=== PATIENT | male | born 1960 | race Caucasian/White ===

== ENCOUNTER 2017-06-06 10:20 | Inpatient (IN) | payer MEDICARE, MEDICAID ==
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
[2017-06-06] MEDS: metFORMIN 500 MG Tab PO SCH (17:44)
[2017-06-06] MEDS: Docusate Sodium 100 MG Cap PO SCH (19:40)
[2017-06-06] MEDS: OLANZapine 10 MG Tab PO SCH (19:40)
[2017-06-06] MEDS: Phenytoin 100 MG Cap.ER PO SCH (19:40)
[2017-06-06] MEDS: Simvastatin 20 MG Tab PO SCH (19:40)
[2017-06-06] MEDS: OLANZapine 5 MG Tab PO SCH (19:40)
[2017-06-06] MEDS: Sennosides 8.6 MG Tab PO SCH (19:40)
[2017-06-06] MEDS ORDERED: PHENYTOIN SODIUM PO SCH ×2 (20:00)
[2017-06-07] MEDS: Omeprazole 20 MG Cap.CR PO SCH ×2 (05:42→06:00)
[2017-06-07] MEDS: Vitamin B Complex Tab.ER PO SCH (07:37)
[2017-06-07] MEDS: Multivitamins with Iron/Calcium/Folic Acid/Minerals Tab PO SCH (07:37)
[2017-06-07] MEDS: metFORMIN 500 MG Tab PO SCH ×2 (07:37→17:59)
[2017-06-07] MEDS: Aspirin 81 MG Tab.EC PO SCH (07:37)
[2017-06-07] MEDS: Docusate Sodium 100 MG Cap PO SCH ×2 (07:38→20:04)
[2017-06-07] MEDS: CLOZAPINE PO SCH ×2 (07:38→12:46)
[2017-06-07] MEDS: Folic Acid 1 MG Tab PO SCH (07:38)
--- NOTE | 2017-06-07 10:05 | PCM.PN ---
- General Info Date of Service: 06/07/17 Admission Dx/Problem (Free Text): History: I received word that he was ready for discharge so I discussed this with his molding room supervisor in [place], Sidra Metzger, and she agreed that discharge was probably premature, noted also that he had significant cognitive decline since his status epilepticus, although it seemed to improve about the time he was discharged from [place]. Also had been noted after he moved to [facility] in [place] that he had developed polydipsia, and nurses have noted that here to, they would refill his water pitcher and he would check it down immediately, although he denied that he was thirsty. During his hospitalization in [place] he was noted to have very low urine osmolality, then went back to normal as his serum sodium joshua. 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 The living situation in [facility] does involve a nurse at the facility and med aids at night, so we might be able to enforce a fluid restriction there later with good supervision. Exam: -He still doesnt have a very good memory. -Seems comfortable in bed Impression: -Schizophrenia with new onset psychogenic polydipsia following transfer to a different living situation -Severe hyponatremia secondary to the polydipsia -Status epilepticus secondary to the hyponatremia, now resolved -We will need to make sure that he complies with a fluid restriction and tolerates it before considering going off his Dilantin again Plan: -Fluid restriction 1500 mL, if that is difficult we can increase it later, we only need to make sure he doesnt drink massive amounts -Check BMP to assess his Na+ on 06/10 and again later in the week -He might need a more formal cognitive assessment before moving him back to [facility] - Patient Data Vitals - Most Recent: Last Vital Signs Temp 36.4 C 06/07/17 05:40 Pulse 72 06/07/17 05:40 Resp 16 06/07/17 05:40 BP 112/73 06/07/17 05:40 Pulse Ox 95 06/07/17 05:40 Weight - Most Recent: 74.162 kg I&O - Last 24 Hours: Intake & Output 06/06/17 06/07/17 06/07/17 22:59 06:59 14:59 Intake Total 680 700 Balance 680 700 Lab Results Last 24 Hours: Laboratory Results - last 24 hr 06/06/17 06/07/17 Range/Units 17:07 05:39 POC Glucose 92 93 (74-106) mg/dL Asim Results Last 24 Hours: Microbiology 06/06/17 10:51 MRSA Surveillance Culture - Final Nares, Unspecified NO MRSA ISOLATED Med Orders - Current: Current Medications Aspirin (Halfprin) 81 mg PO BRK REPLACED BY [facility] Last Admin: 06/07/17 07:37 Dose: 81 mg Docusate Sodium (Colace) 100 mg PO BID REPLACED BY [facility] Last Admin: 06/07/17 07:38 Dose: 100 mg Folic Acid (Folic Acid) 1 mg PO DAILY REPLACED BY [facility] Last Admin: 06/07/17 07:38 Dose: 1 mg Metformin HCl (Glucophage) 500 mg PO BIDMEALS REPLACED BY [facility] Last Admin: 06/07/17 07:37 Dose: 500 mg Multivitamins/Minerals (Thera M Plus) 1 tab PO DAILY REPLACED BY [facility] Last Admin: 06/07/17 07:37 Dose: 1 tab Clozapine (Own (Supply)) 0 mg PO BEDTIME REPLACED BY [facility] Last Admin: 06/06/17 20:07 Dose: 200 mg Clozapine (Own (Supply)) 0 mg PO DAILY REPLACED BY [facility] Last Admin: 06/07/17 07:38 Dose: 50 mg Clozapine (Own (Supply)) 0 mg PO DAILY@12 TAYA Olanzapine (Zyprexa) 20 mg PO BEDTIME REPLACED BY [facility] Last Admin: 06/06/17 19:40 Dose: 20 mg Olanzapine (Zyprexa) 5 mg PO BEDTIME REPLACED BY [facility] Last Admin: 06/06/17 19:40 Dose: 5 mg Omeprazole (Omeprazole) 20 mg PO ACBREAKFAST REPLACED BY [facility] Last Admin: 06/07/17 06:00 Dose: Not Given Phenytoin Sodium (Phenytoin) 300 mg PO BEDTIME REPLACED BY [facility] PRN Reason: Taper Stop: 03/17/20 19:59 Last Admin: 06/06/17 19:40 Dose: 300 mg Senna (Senna) 8.6 mg PO BEDTIME REPLACED BY [facility] Last Admin: 06/06/17 19:40 Dose: 8.6 mg Simvastatin (Zocor) 20 mg PO BEDTIME REPLACED BY [facility] Last Admin: 06/06/17 19:40 Dose: 20 mg Vitamin B Complex (Balanced B-50) 1 each PO DAILY REPLACED BY [facility] Last Admin: 06/07/17 07:37 Dose: 1 each - Problem List Review Problem List Initiated/Reviewed/Updated: Yes - My Orders Last 24 Hours: My Active Orders 06/06/17 09:32 OT Evaluation and Treatment [CONS] Routine PT Evaluation and Treatment [CONS] Routine 06/06/17 10:20 Patient Status [ADT] Routine 06/06/17 11:26 Blood Glucose Check, Bedside [RC] 06/06/17 12:39 Patient Status [ADT] Routine Oxygen Therapy [RC] .PRN VTE/DVT Education [RC] .PRN Vital Signs [RC] Resuscitation Status Routine 06/06/17 18:00 metFORMIN [Glucophage] 500 mg PO BIDMEALS 06/06/17 20:00 Docusate Sodium [Colace] 100 mg PO BID OLANZapine [ZyPREXA] 20 mg PO BEDTIME OLANZapine [ZyPREXA] 5 mg PO BEDTIME Phenytoin 300 mg PO BEDTIME Sennosides [Senna] 8.6 mg PO BEDTIME Simvastatin [Zocor] 20 mg PO BEDTIME cloZAPine 0 mg PO BEDTIME 06/06/17 Lunch ADA Diabetic [[place] Diabetic Association Diet] [DIET] 06/07/17 07:00 Omeprazole 20 mg PO ACBREAKFAST 06/07/17 08:00 Aspirin [Halfprin] 81 mg PO BRK Folic Acid 1 mg PO DAILY Multivitamins w-Iron/Ca/FA/Min [Thera M Plus] 1 tab PO DAILY Vitamin B Complex [Balanced B-50] 1 each PO DAILY cloZAPine [Clozapine] 0 mg PO DAILY 06/07/17 12:00 cloZAPine 0 mg PO DAILY@12 06/07/17 Lunch Fluid Restriction [DIET] 06/10/17 06:00 BASIC METABOLIC PANEL,BMP [CHEM] Routine
[2017-06-07] MEDS: OLANZapine 5 MG Tab PO SCH (20:04)
[2017-06-07] MEDS: Sennosides 8.6 MG Tab PO SCH (20:04)
[2017-06-07] MEDS: Simvastatin 20 MG Tab PO SCH (20:04)
[2017-06-07] MEDS: OLANZapine 10 MG Tab PO SCH (20:04)
[2017-06-07] MEDS: Phenytoin 100 MG Cap.ER PO SCH (20:04)
[2017-06-08] MEDS: Omeprazole 20 MG Cap.CR PO SCH (06:45)
[2017-06-08] MEDS: Aspirin 81 MG Tab.EC PO SCH (07:46)
[2017-06-08] MEDS: metFORMIN 500 MG Tab PO SCH ×2 (07:46→17:55)
[2017-06-08] MEDS: Folic Acid 1 MG Tab PO SCH (07:46)
[2017-06-08] MEDS: Docusate Sodium 100 MG Cap PO SCH ×2 (07:46→21:28)
[2017-06-08] MEDS: CLOZAPINE PO SCH ×2 (07:46→12:19)
[2017-06-08] MEDS: Vitamin B Complex Tab.ER PO SCH (07:46)
[2017-06-08] MEDS: Multivitamins with Iron/Calcium/Folic Acid/Minerals Tab PO SCH (07:46)
[2017-06-08] MEDS: Phenytoin 100 MG Cap.ER PO SCH (21:26)
[2017-06-08] MEDS: Simvastatin 20 MG Tab PO SCH (21:26)
[2017-06-08] MEDS: OLANZapine 5 MG Tab PO SCH (21:27)
[2017-06-08] MEDS: OLANZapine 10 MG Tab PO SCH (21:27)
[2017-06-08] MEDS: Sennosides 8.6 MG Tab PO SCH (21:27)
[2017-06-09] MEDS ORDERED: Acetaminophen 325 MG Tab PO PRN (00:05)
[2017-06-09] MEDS: Omeprazole 20 MG Cap.CR PO SCH (06:01)
[2017-06-09] MEDS: Docusate Sodium 100 MG Cap PO SCH ×2 (07:36→19:58)
[2017-06-09] MEDS: Vitamin B Complex Tab.ER PO SCH (07:36)
[2017-06-09] MEDS: CLOZAPINE PO SCH ×2 (07:36→12:00)
[2017-06-09] MEDS: Folic Acid 1 MG Tab PO SCH (07:36)
[2017-06-09] MEDS: metFORMIN 500 MG Tab PO SCH ×2 (07:36→17:40)
[2017-06-09] MEDS: Aspirin 81 MG Tab.EC PO SCH (07:36)
[2017-06-09] MEDS: Multivitamins with Iron/Calcium/Folic Acid/Minerals Tab PO SCH (07:37)
[2017-06-09] MEDS: OLANZapine 5 MG Tab PO SCH (19:58)
[2017-06-09] MEDS: Sennosides 8.6 MG Tab PO SCH (19:58)
[2017-06-09] MEDS: Phenytoin 100 MG Cap.ER PO SCH (19:58)
[2017-06-09] MEDS: OLANZapine 10 MG Tab PO SCH (19:58)
[2017-06-09] MEDS: Simvastatin 20 MG Tab PO SCH (19:59)
[2017-06-10] MEDS: Omeprazole 20 MG Cap.CR PO SCH (06:33)
[2017-06-10 07:25] LABS: CHLORIDE,CL 108 mmol/L (98-107); SODIUM,NA 144 mmol/L (136-145)
[2017-06-10] MEDS: CLOZAPINE PO SCH ×2 (08:26→12:07)
[2017-06-10] MEDS: metFORMIN 500 MG Tab PO SCH ×2 (08:26→17:55)
[2017-06-10] MEDS: Vitamin B Complex Tab.ER PO SCH (08:26)
[2017-06-10] MEDS: Folic Acid 1 MG Tab PO SCH (08:26)
[2017-06-10] MEDS: Docusate Sodium 100 MG Cap PO SCH ×2 (08:26→20:11)
[2017-06-10] MEDS: Aspirin 81 MG Tab.EC PO SCH (08:26)
[2017-06-10] MEDS: Multivitamins with Iron/Calcium/Folic Acid/Minerals Tab PO SCH (08:26)
[2017-06-10] MEDS: Simvastatin 20 MG Tab PO SCH (20:11)
[2017-06-10] MEDS: OLANZapine 10 MG Tab PO SCH (20:11)
[2017-06-10] MEDS: Phenytoin 100 MG Cap.ER PO SCH (20:11)
[2017-06-10] MEDS: OLANZapine 5 MG Tab PO SCH (20:11)
[2017-06-10] MEDS: Sennosides 8.6 MG Tab PO SCH (20:12)
[2017-06-11] MEDS: Vitamin B Complex Tab.ER PO SCH (13:16)
[2017-06-11] MEDS: CLOZAPINE PO SCH ×2 (13:16→13:17)
[2017-06-11] MEDS: Omeprazole 20 MG Cap.CR PO SCH (13:16)
[2017-06-11] MEDS: Docusate Sodium 100 MG Cap PO SCH ×2 (13:17→20:02)
[2017-06-11] MEDS: Folic Acid 1 MG Tab PO SCH (13:17)
[2017-06-11] MEDS: Aspirin 81 MG Tab.EC PO SCH (13:17)
[2017-06-11] MEDS: metFORMIN 500 MG Tab PO SCH ×2 (13:17→17:08)
[2017-06-11] MEDS: Multivitamins with Iron/Calcium/Folic Acid/Minerals Tab PO SCH (13:17)
[2017-06-11] MEDS: Phenytoin 100 MG Cap.ER PO SCH (20:02)
[2017-06-11] MEDS: Sennosides 8.6 MG Tab PO SCH (20:03)
[2017-06-11] MEDS: Simvastatin 20 MG Tab PO SCH (20:03)
[2017-06-11] MEDS: OLANZapine 10 MG Tab PO SCH (20:03)
[2017-06-11] MEDS: OLANZapine 5 MG Tab PO SCH (20:04)
[2017-06-12] MEDS: Omeprazole 20 MG Cap.CR PO SCH (06:28)
[2017-06-12] MEDS: metFORMIN 500 MG Tab PO SCH (08:00)
[2017-06-12] MEDS: CLOZAPINE PO SCH ×2 (08:00→12:31)
[2017-06-12] MEDS: Multivitamins with Iron/Calcium/Folic Acid/Minerals Tab PO SCH (08:00)
[2017-06-12] MEDS: Folic Acid 1 MG Tab PO SCH (08:00)
[2017-06-12] MEDS: Docusate Sodium 100 MG Cap PO SCH ×2 (08:00→20:20)
[2017-06-12] MEDS: Aspirin 81 MG Tab.EC PO SCH (08:00)
[2017-06-12] MEDS: Vitamin B Complex Tab.ER PO SCH (08:00)
[2017-06-12] MEDS: METFORMIN 500 MG PO SCH (17:44)
[2017-06-12] MEDS: PHENYTOIN 100 MG PO SCH (20:21)
[2017-06-12] MEDS: OLANZAPINE 20 MG PO SCH (20:21)
[2017-06-12] MEDS: SIMVASTATIN 20 MG PO SCH (20:24)
[2017-06-12] MEDS: OLANZAPINE 5 MG PO SCH (20:24)
[2017-06-12] MEDS: Sennosides 8.6 MG Tab PO SCH (20:27)
[2017-06-13] MEDS: OMEPRAZOLE 20 MG PO SCH (06:36)
[2017-06-13] MEDS: METFORMIN 500 MG PO SCH ×2 (07:29→17:54)
[2017-06-13] MEDS: FOLIC ACID 800 MCG PO SCH (07:29)
[2017-06-13] MEDS: Docusate Sodium 100 MG Cap PO SCH ×2 (07:30→20:07)
[2017-06-13] MEDS: Multivitamins with Iron/Calcium/Folic Acid/Minerals Tab PO SCH (07:30)
[2017-06-13] MEDS: Aspirin 81 MG Tab.EC PO SCH (07:30)
[2017-06-13] MEDS: Vitamin B Complex Tab.ER PO SCH (07:30)
[2017-06-13] MEDS: CLOZAPINE PO SCH ×2 (07:31→11:48)
[2017-06-13] MEDS: Polyethylene Glycol 3350 Powder 17 GM Packet PO SCH (12:06)
[2017-06-13] MEDS: Sennosides 8.6 MG Tab PO SCH (20:07)
[2017-06-13] MEDS: OLANZAPINE 5 MG PO SCH (20:07)
[2017-06-13] MEDS: SIMVASTATIN 20 MG PO SCH (20:08)
[2017-06-13] MEDS: OLANZAPINE 20 MG PO SCH (20:08)
[2017-06-13] MEDS: PHENYTOIN 100 MG PO SCH (20:08)
[2017-06-14] MEDS: OMEPRAZOLE 20 MG PO SCH (06:34)
[2017-06-14] MEDS: Vitamin B Complex Tab.ER PO SCH (07:37)
[2017-06-14] MEDS: CLOZAPINE PO SCH ×2 (07:38→12:02)
[2017-06-14] MEDS: Docusate Sodium 100 MG Cap PO SCH ×2 (07:39→20:54)
[2017-06-14] MEDS: FOLIC ACID 800 MCG PO SCH (07:39)
[2017-06-14] MEDS: Aspirin 81 MG Tab.EC PO SCH (07:39)
[2017-06-14] MEDS: Polyethylene Glycol 3350 Powder 17 GM Packet PO SCH (07:40)
[2017-06-14] MEDS: Multivitamins with Iron/Calcium/Folic Acid/Minerals Tab PO SCH (07:40)
[2017-06-14] MEDS: METFORMIN 500 MG PO SCH ×2 (07:40→18:11)
[2017-06-14] MEDS: OLANZAPINE 20 MG PO SCH (20:54)
[2017-06-14] MEDS: PHENYTOIN 100 MG PO SCH (20:55)
[2017-06-14] MEDS: OLANZAPINE 5 MG PO SCH (20:55)
[2017-06-14] MEDS: Sennosides 8.6 MG Tab PO SCH (20:56)
[2017-06-14] MEDS: SIMVASTATIN 20 MG PO SCH (20:56)
[2017-06-15] MEDS: OMEPRAZOLE 20 MG PO SCH (06:19)
[2017-06-15] MEDS: Polyethylene Glycol 3350 Powder 17 GM Packet PO SCH (08:22)
[2017-06-15] MEDS: Vitamin B Complex Tab.ER PO SCH (08:23)
[2017-06-15] MEDS: Docusate Sodium 100 MG Cap PO SCH ×2 (08:23→20:24)
[2017-06-15] MEDS: CLOZAPINE PO SCH ×2 (08:23→12:39)
[2017-06-15] MEDS: Aspirin 81 MG Tab.EC PO SCH (08:23)
[2017-06-15] MEDS: Multivitamins with Iron/Calcium/Folic Acid/Minerals Tab PO SCH (08:23)
[2017-06-15] MEDS: METFORMIN 500 MG PO SCH ×2 (08:23→17:03)
[2017-06-15] MEDS: FOLIC ACID 800 MCG PO SCH (08:23)
[2017-06-15] MEDS: Magnesium Hydroxide 400 MG/5 ML Susp 30 ML Cup PO PRN (15:04)
[2017-06-15] MEDS: Sennosides 8.6 MG Tab PO SCH (20:24)
[2017-06-15] MEDS: OLANZAPINE 20 MG PO SCH (20:24)
[2017-06-15] MEDS: PHENYTOIN 100 MG PO SCH (20:25)
[2017-06-15] MEDS: OLANZAPINE 5 MG PO SCH (20:25)
[2017-06-15] MEDS: SIMVASTATIN 20 MG PO SCH (20:26)
[2017-06-16] MEDS: OMEPRAZOLE 20 MG PO SCH (06:11)
[2017-06-16] MEDS: Magnesium Hydroxide 400 MG/5 ML Susp 30 ML Cup PO PRN (07:48)
[2017-06-16] MEDS: Vitamin B Complex Tab.ER PO SCH (07:48)
[2017-06-16] MEDS: Multivitamins with Iron/Calcium/Folic Acid/Minerals Tab PO SCH (07:48)
[2017-06-16] MEDS: Aspirin 81 MG Tab.EC PO SCH (07:48)
[2017-06-16] MEDS: Docusate Sodium 100 MG Cap PO SCH ×2 (07:48→20:03)
[2017-06-16] MEDS: Polyethylene Glycol 3350 Powder 17 GM Packet PO SCH (07:48)
[2017-06-16] MEDS: FOLIC ACID 800 MCG PO SCH (07:49)
[2017-06-16] MEDS: CLOZAPINE PO SCH ×2 (07:49→11:10)
[2017-06-16] MEDS: METFORMIN 500 MG PO SCH ×2 (07:49→17:04)
[2017-06-16] MEDS: PHENYTOIN 100 MG PO SCH (20:03)
[2017-06-16] MEDS: Sennosides 8.6 MG Tab PO SCH (20:03)
[2017-06-16] MEDS: OLANZAPINE 20 MG PO SCH (20:03)
[2017-06-16] MEDS: OLANZAPINE 5 MG PO SCH (20:03)
[2017-06-16] MEDS: SIMVASTATIN 20 MG PO SCH (20:04)
[2017-06-17] MEDS: OMEPRAZOLE 20 MG PO SCH (06:09)
[2017-06-17] MEDS: CLOZAPINE PO SCH ×2 (07:16→11:05)
[2017-06-17] MEDS: METFORMIN 500 MG PO SCH ×2 (07:16→17:01)
[2017-06-17] MEDS: FOLIC ACID 800 MCG PO SCH (07:17)
[2017-06-17] MEDS: Multivitamins with Iron/Calcium/Folic Acid/Minerals Tab PO SCH (07:17)
[2017-06-17] MEDS: Aspirin 81 MG Tab.EC PO SCH (07:17)
[2017-06-17] MEDS: Docusate Sodium 100 MG Cap PO SCH ×2 (07:17→19:51)
[2017-06-17] MEDS: Vitamin B Complex Tab.ER PO SCH (07:17)
[2017-06-17] MEDS: Polyethylene Glycol 3350 Powder 17 GM Packet PO SCH (07:18)
[2017-06-17] MEDS: SIMVASTATIN 20 MG PO SCH (19:51)
[2017-06-17] MEDS: Sennosides 8.6 MG Tab PO SCH (19:51)
[2017-06-17] MEDS: OLANZAPINE 20 MG PO SCH (19:52)
[2017-06-17] MEDS: OLANZAPINE 5 MG PO SCH (19:52)
[2017-06-17] MEDS: PHENYTOIN 100 MG PO SCH (19:52)
[2017-06-18] MEDS: OMEPRAZOLE 20 MG PO SCH (06:14)
[2017-06-18] MEDS: Multivitamins with Iron/Calcium/Folic Acid/Minerals Tab PO SCH (08:34)
[2017-06-18] MEDS: Vitamin B Complex Tab.ER PO SCH (08:35)
[2017-06-18] MEDS: Docusate Sodium 100 MG Cap PO SCH ×2 (08:35→20:57)
[2017-06-18] MEDS: Polyethylene Glycol 3350 Powder 17 GM Packet PO SCH (08:35)
[2017-06-18] MEDS: Aspirin 81 MG Tab.EC PO SCH (08:35)
[2017-06-18] MEDS: FOLIC ACID 800 MCG PO SCH (08:36)
[2017-06-18] MEDS: CLOZAPINE PO SCH ×2 (08:36→13:26)
[2017-06-18] MEDS: METFORMIN 500 MG PO SCH ×2 (08:36→18:43)
[2017-06-18] MEDS: Sennosides 8.6 MG Tab PO SCH (20:57)
[2017-06-18] MEDS: OLANZAPINE 20 MG PO SCH (20:58)
[2017-06-18] MEDS: OLANZAPINE 5 MG PO SCH (20:58)
[2017-06-18] MEDS: PHENYTOIN 100 MG PO SCH (21:00)
[2017-06-18] MEDS: SIMVASTATIN 20 MG PO SCH (21:00)
[2017-06-19] MEDS: OMEPRAZOLE 20 MG PO SCH (06:09)
[2017-06-19] MEDS: Multivitamins with Iron/Calcium/Folic Acid/Minerals Tab PO SCH (08:58)
[2017-06-19] MEDS: Aspirin 81 MG Tab.EC PO SCH (08:58)
[2017-06-19] MEDS: Docusate Sodium 100 MG Cap PO SCH ×2 (08:58→20:12)
[2017-06-19] MEDS: Vitamin B Complex Tab.ER PO SCH (08:58)
[2017-06-19] MEDS: METFORMIN 500 MG PO SCH ×2 (08:59→17:46)
[2017-06-19] MEDS: FOLIC ACID 800 MCG PO SCH (08:59)
[2017-06-19] MEDS: CLOZAPINE PO SCH ×2 (09:00→11:42)
[2017-06-19] MEDS: Polyethylene Glycol 3350 Powder 17 GM Packet PO SCH (09:01)
[2017-06-19] MEDS: OLANZAPINE 20 MG PO SCH (20:10)
[2017-06-19] MEDS: PHENYTOIN 100 MG PO SCH (20:10)
[2017-06-19] MEDS: SIMVASTATIN 20 MG PO SCH (20:11)
[2017-06-19] MEDS: OLANZAPINE 5 MG PO SCH (20:11)
[2017-06-19] MEDS: Sennosides 8.6 MG Tab PO SCH (20:12)
[2017-06-20] MEDS: OMEPRAZOLE 20 MG PO SCH (06:41)
[2017-06-20] MEDS: Multivitamins with Iron/Calcium/Folic Acid/Minerals Tab PO SCH (07:36)
[2017-06-20] MEDS: Vitamin B Complex Tab.ER PO SCH (07:36)
[2017-06-20] MEDS: Docusate Sodium 100 MG Cap PO SCH ×2 (07:37→20:03)
[2017-06-20] MEDS: CLOZAPINE PO SCH ×2 (07:37→11:17)
[2017-06-20] MEDS: Aspirin 81 MG Tab.EC PO SCH (07:37)
[2017-06-20] MEDS: FOLIC ACID 800 MCG PO SCH (07:38)
[2017-06-20] MEDS: METFORMIN 500 MG PO SCH ×2 (07:38→17:43)
[2017-06-20] MEDS: Polyethylene Glycol 3350 Powder 17 GM Packet PO SCH (07:39)
[2017-06-20 07:40] LABS: CHLORIDE,CL 106 mmol/L (98-107); SODIUM,NA 143 mmol/L (136-145)
[2017-06-20] MEDS: Sennosides 8.6 MG Tab PO SCH (20:03)
[2017-06-20] MEDS: PHENYTOIN 100 MG PO SCH (20:04)
[2017-06-20] MEDS: OLANZAPINE 20 MG PO SCH (20:04)
[2017-06-20] MEDS: SIMVASTATIN 20 MG PO SCH (20:05)
[2017-06-20] MEDS: OLANZAPINE 5 MG PO SCH (20:05)
[2017-06-21] MEDS: OMEPRAZOLE 20 MG PO SCH (06:26)
[2017-06-21] MEDS: Docusate Sodium 100 MG Cap PO SCH ×2 (07:34→20:42)
[2017-06-21] MEDS: Multivitamins with Iron/Calcium/Folic Acid/Minerals Tab PO SCH (07:34)
[2017-06-21] MEDS: Aspirin 81 MG Tab.EC PO SCH (07:34)
[2017-06-21] MEDS: Vitamin B Complex Tab.ER PO SCH (07:34)
[2017-06-21] MEDS: METFORMIN 500 MG PO SCH ×2 (07:35→17:32)
[2017-06-21] MEDS: CLOZAPINE PO SCH ×2 (07:36→11:53)
[2017-06-21] MEDS: FOLIC ACID 800 MCG PO SCH (07:36)
[2017-06-21] MEDS: Polyethylene Glycol 3350 Powder 17 GM Packet PO SCH (07:37)
--- NOTE | 2017-06-21 10:01 | PCM.PN ---
- General Info Date of Service: 06/19/17 Admission Dx/Problem (Free Text): History: Because he was put on a fluid restriction the rules did not allow him to go back to the same assisted living where he had been previously. He has done very well, and would appear not to need a formal fluid restriction. He is easily redirected when he asks for extra water and has not been found to be sneaking any. immigration case worker has been in touch with [facility] and they are considering taking him back, if we would discontinue the formal fluid restriction, and that seems reasonable. His Na+ yesterday was 143, K+ 4.0, GFR > 60. His Accu-Cheks have been normal. Exam, on 06/19/17: -Lucid and alert -Answered questions appropriately -Ambulating independently -Still some mildly bizarre thought content Impression: -Severe episode of hyponatremia and resulting status epilepticus, now resolved -Mild increase in cognitive disorders since this event, should be able to function in his apartment again -Would appear not to need a formal fluid restriction, just fairly close general contact at first -Since his Dilantin level was low on this dose and he does not seem to have symptoms from it, I am inclined to continue Dilantin for a few months, just so he has some on board Plan: -Discussed with Procedure Manager 06/20/17, they will try to finalize plans for T/F back to [facility]. -D/C the formal fluid restriction - Patient Data Vitals - Most Recent: Last Vital Signs Temp 36.5 C 06/21/17 05:25 Pulse 88 06/21/17 05:25 Resp 18 06/21/17 05:25 BP 108/65 06/21/17 05:25 Pulse Ox 96 06/21/17 05:25 Weight - Most Recent: 74.162 kg I&O - Last 24 Hours: Intake & Output 06/20/17 06/21/17 06/21/17 22:59 06:59 14:59 Intake Total 480 420 Balance 480 420 Lab Results Last 24 Hours: Laboratory Results - last 24 hr 06/20/17 06/21/17 Range/Units 16:52 06:24 POC Glucose 83 80 (74-106) mg/dL Med Orders - Current: Current Medications Acetaminophen (Tylenol) 650 mg PO Q4H PRN PRN Reason: Pain Last Admin: 06/09/17 00:27 Dose: 650 mg Aspirin (Halfprin) 81 mg PO DAILY [facility] Last Admin: 06/21/17 07:34 Dose: 81 mg Docusate Sodium (Colace) 100 mg PO BID [facility] Last Admin: 06/21/17 07:34 Dose: 100 mg Magnesium Hydroxide (Milk Of Magnesia) 30 ml PO DAILY PRN PRN Reason: Constipation Last Admin: 06/16/17 07:48 Dose: 30 ml Multivitamins/Minerals (Thera M Plus) 1 tab PO DAILY [facility] Last Admin: 06/21/17 07:34 Dose: 1 tab Clozapine (Own (Supply)) 0 mg PO BEDTIME [facility] Last Admin: 06/20/17 20:04 Dose: 200 mg Clozapine (Own (Supply)) 0 mg PO DAILY [facility] Last Admin: 06/21/17 07:36 Dose: 50 mg Clozapine (Own (Supply)) 0 mg PO DAILY@12 [facility] Last Admin: 06/20/17 11:17 Dose: 100 mg Folic Acid. 800mcg ( (Own Supply)) 0 mcg PO DAILY [facility] Last Admin: 06/21/17 07:36 Dose: 800 mcg Metformin. 500mg ( (Own Supply)) 0 mg PO BIDMEALS [facility] Last Admin: 06/21/17 07:35 Dose: 500 mg Olanzapine. 20mg ( (Own Supply)) 0 mg PO BEDTIME [facility] Last Admin: 06/20/17 20:04 Dose: 20 mg Olanzapine. 5mg (Own (Supply)) 0 mg PO BEDTIME [facility] Last Admin: 06/20/17 20:05 Dose: 5 mg Omeprazole. 20mg ( (Own Supply)) 0 mg PO ACBREAKFAST [facility] Last Admin: 06/21/17 06:26 Dose: 20 mg Phenytoin. 100mg ( (Own Supply)) 200 mg PO BEDTIME [facility] PRN Reason: Taper Stop: 06/29/17 19:59 Last Admin: 06/20/17 20:04 Dose: 200 mg Simvastatin. 20mg ( (Own Supply)) 0 mg PO BEDTIME [facility] Last Admin: 06/20/17 20:05 Dose: 20 mg Polyethylene Glycol (Miralax) 17 gm PO DAILY [facility] Last Admin: 06/21/17 07:37 Dose: 17 gm Senna (Senna) 8.6 mg PO BEDTIME [facility] Last Admin: 06/20/17 20:03 Dose: 8.6 mg Vitamin B Complex (Balanced B-50) 1 each PO DAILY TAYA Last Admin: 06/21/17 07:34 Dose: 1 each Discontinued Medications Aspirin (Halfprin) 81 mg PO BRK TAYA Last Admin: 06/12/17 08:00 Dose: 81 mg Folic Acid (Folic Acid) 1 mg PO DAILY TAYA Last Admin: 06/12/17 08:00 Dose: 1 mg Metformin HCl (Glucophage) 500 mg PO BIDMEALS TAYA Last Admin: 06/12/17 08:00 Dose: 500 mg Olanzapine (Zyprexa) 20 mg PO BEDTIME TAYA Last Admin: 06/11/17 20:03 Dose: 20 mg Olanzapine (Zyprexa) 5 mg PO BEDTIME TAYA Last Admin: 06/11/17 20:04 Dose: 5 mg Omeprazole (Omeprazole) 20 mg PO ACBREAKFAST TAYA Last Admin: 06/12/17 06:28 Dose: 20 mg Phenytoin Sodium (Phenytoin) 300 mg PO BEDTIME TAYA PRN Reason: Taper Stop: 03/17/20 19:59 Last Admin: 06/11/17 20:02 Dose: 300 mg Simvastatin (Zocor) 20 mg PO BEDTIME TAYA Last Admin: 06/11/17 20:03 Dose: 20 mg - Problem List Review Problem List Initiated/Reviewed/Updated: Yes
[2017-06-21] MEDS: Sennosides 8.6 MG Tab PO SCH (20:42)
[2017-06-21] MEDS: SIMVASTATIN 20 MG PO SCH (20:43)
[2017-06-21] MEDS: OLANZAPINE 5 MG PO SCH (20:43)
[2017-06-21] MEDS: OLANZAPINE 20 MG PO SCH (20:44)
[2017-06-21] MEDS: PHENYTOIN 100 MG PO SCH (20:45)
[2017-06-22] MEDS: OMEPRAZOLE 20 MG PO SCH (06:40)
[2017-06-22] MEDS: Vitamin B Complex Tab.ER PO SCH (08:22)
[2017-06-22] MEDS: CLOZAPINE PO SCH ×2 (08:22→12:15)
[2017-06-22] MEDS: FOLIC ACID 800 MCG PO SCH (08:23)
[2017-06-22] MEDS: Docusate Sodium 100 MG Cap PO SCH ×2 (08:23→20:29)
[2017-06-22] MEDS: Multivitamins with Iron/Calcium/Folic Acid/Minerals Tab PO SCH (08:24)
[2017-06-22] MEDS: Polyethylene Glycol 3350 Powder 17 GM Packet PO SCH (08:24)
[2017-06-22] MEDS: Aspirin 81 MG Tab.EC PO SCH (08:24)
[2017-06-22] MEDS: METFORMIN 500 MG PO SCH ×2 (08:24→17:38)
[2017-06-22] MEDS: OLANZAPINE 5 MG PO SCH (20:29)
[2017-06-22] MEDS: Sennosides 8.6 MG Tab PO SCH (20:29)
[2017-06-22] MEDS: OLANZAPINE 20 MG PO SCH (20:29)
[2017-06-22] MEDS: PHENYTOIN 100 MG PO SCH (20:30)
[2017-06-22] MEDS: SIMVASTATIN 20 MG PO SCH (20:30)
[2017-06-23] MEDS: Aspirin 81 MG Tab.EC PO SCH (07:52)
[2017-06-23] MEDS: OMEPRAZOLE 20 MG PO SCH (07:52)
[2017-06-23] MEDS: Multivitamins with Iron/Calcium/Folic Acid/Minerals Tab PO SCH (07:52)
[2017-06-23] MEDS: Docusate Sodium 100 MG Cap PO SCH ×2 (07:52→21:48)
[2017-06-23] MEDS: FOLIC ACID 800 MCG PO SCH (07:53)
[2017-06-23] MEDS: CLOZAPINE PO SCH ×2 (07:53→11:45)
[2017-06-23] MEDS: METFORMIN 500 MG PO SCH ×2 (07:54→17:50)
[2017-06-23] MEDS: Polyethylene Glycol 3350 Powder 17 GM Packet PO SCH (08:01)
[2017-06-23] MEDS: Vitamin B Complex Tab.ER PO SCH (08:01)
[2017-06-23] MEDS: PHENYTOIN 100 MG PO SCH (21:48)
[2017-06-23] MEDS: Sennosides 8.6 MG Tab PO SCH (21:48)
[2017-06-23] MEDS: SIMVASTATIN 20 MG PO SCH (21:49)
[2017-06-23] MEDS: OLANZAPINE 5 MG PO SCH (21:49)
[2017-06-23] MEDS: OLANZAPINE 20 MG PO SCH (21:50)
[2017-06-24] MEDS: OMEPRAZOLE 20 MG PO SCH (06:31)
[2017-06-24] MEDS: METFORMIN 500 MG PO SCH ×2 (08:44→18:29)
[2017-06-24] MEDS: CLOZAPINE PO SCH ×2 (08:44→12:29)
[2017-06-24] MEDS: FOLIC ACID 800 MCG PO SCH (08:44)
[2017-06-24] MEDS: Polyethylene Glycol 3350 Powder 17 GM Packet PO SCH (08:52)
[2017-06-24] MEDS: Vitamin B Complex Tab.ER PO SCH (08:52)
[2017-06-24] MEDS: Docusate Sodium 100 MG Cap PO SCH ×2 (08:52→21:17)
[2017-06-24] MEDS: Multivitamins with Iron/Calcium/Folic Acid/Minerals Tab PO SCH (08:52)
[2017-06-24] MEDS: Aspirin 81 MG Tab.EC PO SCH (08:52)
[2017-06-24] MEDS: Sennosides 8.6 MG Tab PO SCH (21:17)
[2017-06-24] MEDS: OLANZAPINE 20 MG PO SCH (21:17)
[2017-06-24] MEDS: OLANZAPINE 5 MG PO SCH (21:19)
[2017-06-24] MEDS: SIMVASTATIN 20 MG PO SCH (21:19)
[2017-06-24] MEDS: PHENYTOIN 100 MG PO SCH (21:20)
[2017-06-25 05:12] VITALS: BP 98/59
[2017-06-25] MEDS: OMEPRAZOLE 20 MG PO SCH (06:17)
[2017-06-25 07:28] LABS: CHLORIDE,CL 106 mmol/L (98-107); SODIUM,NA 142 mmol/L (136-145)
[2017-06-25] MEDS: Aspirin 81 MG Tab.EC PO SCH (07:54)
[2017-06-25] MEDS: Multivitamins with Iron/Calcium/Folic Acid/Minerals Tab PO SCH (07:54)
[2017-06-25] MEDS: Polyethylene Glycol 3350 Powder 17 GM Packet PO SCH (07:54)
[2017-06-25] MEDS: Vitamin B Complex Tab.ER PO SCH (07:54)
[2017-06-25] MEDS: Docusate Sodium 100 MG Cap PO SCH (07:54)
[2017-06-25] MEDS: FOLIC ACID 800 MCG PO SCH (07:55)
[2017-06-25] MEDS: METFORMIN 500 MG PO SCH (07:55)
[2017-06-25] MEDS: CLOZAPINE PO SCH ×2 (07:56→12:05)
--- NOTE | 2017-06-25 17:08 | PCM.DCSUM1 ---
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 He had acute respiratory failure, was intubated, sent by air ambulance to ICU in [place] and gradually improved. He was not able to go back to his previous Assisted Living at that time, still on a decreasing dose of Dilantin, and Na+ was not quite normal yet. Initial Findings: Schizophrenia as before, noticeable decline in cognitive function compared to his previous condition. Exam otherwise unremarkable, vital signs normal. Treatment and Course in Hospital: He had a functional memory assessment which showed some cognitive loss, but there was no comparison with his previous condition, and it is recommended he be in supervised living. He was noted by the nurses to have a tendency towards polydipsia, something that had not been noted previously. He was first put on a 2000 mL fluid restriction, and he was so easy to redirect that in the last week he had a trial of simply telling him not to drink too much, with no formal fluid restriction, and he did well with this. He did not have any Psych F/U during his stay but continued on the same Clazuril and Zyprexa. He was admitted on Dilantin 300 mg daily, tapered down to 200 mg daily, then 100 mg daily, and his Dilantin level even on 200 mg was below therapeutic but he had no side effects from it. He is Na+ on 06/20 was 143, K+ 4.0, creatinine 0.9 Na+ on 06/25/17 was 142, K+ 3.4 , creatinine 0.8. His Accu-Cheks were 95-140 throughout his stay. Condition on Discharge: -Vital signs normal -Alert and calm -Answers questions appropriately although his affect still reflects his schizoaffective disorder -Has not been observed to drink abnormal amounts of liquid on his own in the last 10 days Discharge Plan: -His Dilantin is 100 mg daily, can DC it completely on 07/08/17 -Continue same medications and should see his primary physician, Luciana Zhang CNP, in one week -Continue same Psych meds, restart Psych F/U. -Continue same metformin and diabetes management -He will probably need continued reminders to avoid excess water intake, especially sufficient laxatives to control constipation, since he gives this as one reason that he was drinking excess water - Discharge Data Discharge Date: 06/25/17 Discharge Disposition: DC/Tfer to [facility] Condition: Good - Patient Summary/Data Consults: Consultations 06/07/17 15:02 OT Evaluation and Treatment [CONS] Routine - Discharge Plan Home Medications: Home Meds Docusate Sodium [Colace] 100 mg PO BID 07/03/13 [History] Multivitamin [Multi-Vitamin Daily] 1 each PO DAILY 07/03/13 [History] Omeprazole 20 mg PO DAILY 07/03/13 [History] Aspirin [Halfprin] 81 mg PO WITHBREAKFAST 06/06/17 [History] Ca Carbonate/Vit B Comp/FA [Complex B-50] 1 each PO DAILY 06/06/17 [History] Folic Acid 0.8 mg PO DAILY 06/06/17 [History] OLANZapine 20 mg PO BEDTIME 06/06/17 [History] OLANZapine [ZyPREXA] 5 mg PO BEDTIME 06/06/17 [History] Phenytoin Sodium Extended [Dilantin] 100 mg PO BEDTIME 06/06/17 [History] Sennosides [Senna Lax] 8.6 mg PO BEDTIME 06/06/17 [History] Simvastatin [Zocor] 20 mg PO BEDTIME 06/06/17 [History] cloZAPine [Clozaril] 50 mg PO QAM 06/06/17 [History] cloZAPine [Clozaril] 100 mg PO DAILY@12 06/06/17 [History] cloZAPine [Clozaril] 200 mg PO BEDTIME 06/06/17 [History] metFORMIN [Glucophage] 500 mg PO BIDMEALS 06/06/17 [History] - Patient Data Vitals - Most Recent: Last Vital Signs Temp 36.7 C 06/25/17 05:10 Pulse 84 06/25/17 05:10 Resp 20 06/25/17 05:10 BP 98/59 L 06/25/17 05:10 Pulse Ox 98 06/25/17 05:10 Weight - Most Recent: 74.162 kg I&O - Last 24 hours: Intake & Output 06/25/17 06/25/17 06/25/17 06:59 14:59 22:59 Intake Total 540 Balance 540 Lab Results - Last 24 hrs: Laboratory Results - last 24 hr 06/24/17 06/25/17 06/25/17 Range/Units 11:33 06:16 06:53 Sodium 142 (136-145) mmol/L Potassium 3.4 L (3.5-5.1) mmol/L Chloride 106 (98-107) mmol/L Carbon Dioxide 25 (21-32) mmol/L BUN 14 (7-18) mg/dL Creatinine 0.8 (0.70-1.30) mg/dL Est Cr Clr Drug Dosing 100.94 mL/min Estimated GFR (MDRD) > 60 Glucose 116 H (74-106) mg/dL POC Glucose 81 77 (74-106) mg/dL Calcium 8.6 (8.5-10.1) mg/dL Med Orders - Current: Current Medications Discontinued Medications Acetaminophen (Tylenol) 650 mg PO Q4H PRN PRN Reason: Pain Last Admin: 06/09/17 00:27 Dose: 650 mg Aspirin (Halfprin) 81 mg PO BRK [facility] Last Admin: 06/12/17 08:00 Dose: 81 mg Aspirin (Halfprin) 81 mg PO DAILY [facility] Last Admin: 06/25/17 07:54 Dose: 81 mg Docusate Sodium (Colace) 100 mg PO BID [facility] Last Admin: 06/25/17 07:54 Dose: 100 mg Folic Acid (Folic Acid) 1 mg PO DAILY [facility] Last Admin: 06/12/17 08:00 Dose: 1 mg Magnesium Hydroxide (Milk Of Magnesia) 30 ml PO DAILY PRN PRN Reason: Constipation Last Admin: 06/16/17 07:48 Dose: 30 ml Metformin HCl (Glucophage) 500 mg PO BIDMEALS [facility] Last Admin: 06/12/17 08:00 Dose: 500 mg Multivitamins/Minerals (Thera M Plus) 1 tab PO DAILY [facility] Last Admin: 06/25/17 07:54 Dose: 1 tab Clozapine (Own (Supply)) 0 mg PO BEDTIME [facility] Last Admin: 06/24/17 21:19 Dose: 200 mg Clozapine (Own (Supply)) 0 mg PO DAILY [facility] Last Admin: 06/25/17 07:56 Dose: 50 mg Clozapine (Own (Supply)) 0 mg PO DAILY@12 [facility] Last Admin: 06/25/17 12:05 Dose: 100 mg Folic Acid. 800mcg ( (Own Supply)) 0 mcg PO DAILY [facility] Last Admin: 06/25/17 07:55 Dose: 800 mcg Metformin. 500mg ( (Own Supply)) 0 mg PO BIDMEALS [facility] Last Admin: 06/25/17 07:55 Dose: 500 mg Olanzapine. 20mg ( (Own Supply)) 0 mg PO BEDTIME [facility] Last Admin: 06/24/17 21:17 Dose: 20 mg Olanzapine. 5mg (Own (Supply)) 0 mg PO BEDTIME [facility] Last Admin: 06/24/17 21:19 Dose: 5 mg Omeprazole. 20mg ( (Own Supply)) 0 mg PO ACBREAKFAST [facility] Last Admin: 06/25/17 06:17 Dose: 20 mg Phenytoin. 100mg ( (Own Supply)) 100 mg PO BEDTIME [facility] PRN Reason: Taper Stop: 06/29/17 19:59 Last Admin: 06/24/17 21:20 Dose: 100 mg Simvastatin. 20mg ( (Own Supply)) 0 mg PO BEDTIME [facility] Last Admin: 06/24/17 21:19 Dose: 20 mg Olanzapine (Zyprexa) 20 mg PO BEDTIME [facility] Last Admin: 06/11/17 20:03 Dose: 20 mg Olanzapine (Zyprexa) 5 mg PO BEDTIME [facility] Last Admin: 06/11/17 20:04 Dose: 5 mg Omeprazole (Omeprazole) 20 mg PO ACBREAKFAST [facility] Last Admin: 06/12/17 06:28 Dose: 20 mg Phenytoin Sodium (Phenytoin) 300 mg PO BEDTIME [facility] PRN Reason: Taper Stop: 03/17/20 19:59 Last Admin: 06/11/17 20:02 Dose: 300 mg Polyethylene Glycol (Miralax) 17 gm PO DAILY [facility] Last Admin: 06/25/17 07:54 Dose: 17 gm Senna (Senna) 8.6 mg PO BEDTIME [facility] Last Admin: 06/24/17 21:17 Dose: 8.6 mg Simvastatin (Zocor) 20 mg PO BEDTIME [facility] Last Admin: 06/11/17 20:03 Dose: 20 mg Vitamin B Complex (Balanced B-50) 1 each PO DAILY [facility] Last Admin: 06/25/17 07:54 Dose: 1 each *Q Meaningful Use (DIS) - VTE *Q VTE Criteria *Q: - Stroke *Q Stroke Criteria *Q: - AMI *Q AMI Criteria *Q:
== END 2017-06-25 12:15 | DRG 641 ==
LOC: VM.MS 10:20
PROVIDERS: ADMIT Family Medicine; ATTEND Family Medicine
DX: E87.1 Hypo-osmolality and hyponatremia (principal); R63.1 Polydipsia; F20.9 Schizophrenia, unspecified; F06.8 Other specified mental disorders due to known physiological condition; G40.901 Epilepsy, unspecified, not intractable, with status epilepticus; E78.5 Hyperlipidemia, unspecified; E11.9 Type 2 diabetes mellitus without complications; Z79.84 Long term (current) use of oral hypoglycemic drugs; Z88.8 Allergy status to other drugs, medicaments and biological substances; Z79.82 Long term (current) use of aspirin; Z79.899 Other long term (current) drug therapy; F41.9 Anxiety disorder, unspecified; F10.11 Alcohol abuse, in remission; F19.11 Other psychoactive substance abuse, in remission
CPT/HCPCS: 36415; 80048; 80185; 82962; 85025; 97161-GP; 97165-GO; 97532-GO; A9270-GY